=== PATIENT | female | born 1950 | race Caucasian/White ===

== ENCOUNTER 2020-08-02 05:54 | Day surgery (SDC) | payer MEDICARE, OTHER ==
[~2020-08-02] VITALS: Ht 152.4 cm; Wt 68.3 kg
[~2020-08-02 05:54] MED LIST: SODIUM CHLORIDE 0.9% 1,000 ML IV ONE
[2020-08-02] MEDS ORDERED: SODIUM CHLORIDE 0.9% 1,000 ML ONE (05:59)
[2020-08-02 06:44] LABS: COVID AG,FIA SOURCE NASOPHARYNGEAL
[2020-08-02 06:48] LABS: EOSINOPHILS % (AUTO) 1.3 % (1.0-6.0); HEMATOCRIT 39.6 % (36-46); HEMOGLOBIN 13.3 g/dL (12.0-16.0); LYMPHOCYTES # (AUTO) 0.6 K/uL (1.0-4.8); MEAN CORPUSCULAR HEMOGLOBIN 30.2 pg (26.0-34.0); MEAN CORPUSCULAR HGB CONC 33.6 G/dL (31.0-37.0); MEAN CORPUSCULAR VOLUME 90 fL (80-100); MONOCYTES # (AUTO) 0.4 K/uL (0.1-1.0); MONOCYTES % (AUTO) 10.6 % (2.0-9.0); NEUTROPHILS # (AUTO) 2.7 K/uL (1.8-7.7); NEUTROPHILS % (AUTO) 72.1 % (40.0-70.0); PLATELET COUNT (AUTO) 174 K/uL (150-450); RED BLOOD CELL COUNT(AUTO) 4.41 MIL/uL (4.00-5.20); RED CELL DISTRIBUTION WIDTH 13.1 % (11.5-14.5)
[2020-08-02 07:09] LABS: PROTHROMBIN TIME 10.9 SEC (9.4-11.6)
[2020-08-02 07:14] LABS: ANION GAP 8 mmol/L (8-16); CALCIUM, TOTAL 9.1 mg/dL (8.8-10.5); CARBON DIOXIDE 31 mmol/L (22-29); CHLORIDE 103 mmol/L (98-107); CREATININE 0.68 mg/dL (0.60-1.30); GLOMERULAR FILTR. RATE CALC > 60 mL/min (>60); GLUCOSE,RANDOM 104 mg/dL (70-110); POTASSIUM 3.3 mmol/L (3.5-5.1); SODIUM SERUM 142 mmol/L (136-145); UREA NITROGEN, BLOOD 16 mg/dL (7-18)
[2020-08-02] MEDS ORDERED: SODIUM BICARBONATE 50 MEQ/50 ML VIAL ONE (07:33)
[2020-08-02] MEDS ORDERED: IOHEXOL 300 MG/ML 150 ML VIAL ONE (07:33)
[2020-08-02] MEDS ORDERED: VERAPAMIL HCL 2.5 MG/ML 2 ML VIAL ONE (07:33)
[2020-08-02] MEDS ORDERED: HEPARIN SODIUM 1000 UNITS/NS 1,000 ML ONE (07:33)
[2020-08-02] MEDS ORDERED: LIDOCAINE/PF 1% 30 ML VIAL ONE (07:33)
[2020-08-02] MEDS ORDERED: NITROGLYCERIN 50 MG/D5% WATER 250 ML ONE (07:33)
[2020-08-02] MEDS ORDERED: HEPARIN SODIUM,PORCINE 1,000 UNITS/ML 10 ML VIAL ONE (07:34)
[2020-08-02] MEDS ORDERED: FentaNYL CITRATE-PF 100 MCG/2 ML VIAL ONE (07:35)
[2020-08-02] MEDS ORDERED: MIDAZOLAM HCL 2 MG/2 ML VIAL ONE ×2 (07:35→08:48)
[2020-08-02] MEDS ORDERED: OMEP20 PO (07:37)
[2020-08-02] MEDS ORDERED: FERR-89 PO (07:37)
[2020-08-02] MEDS ORDERED: COLC0.6T73 PO (07:37)
[2020-08-02] MEDS ORDERED: ASPI-728 PO (07:37)
[2020-08-02] MEDS ORDERED: BACL5TAB PO (07:37)
[2020-08-02] MEDS ORDERED: PROM-163 PO (07:37)
[2020-08-02] MEDS ORDERED: METO-558 PO (07:37)
[2020-08-02] MEDS ORDERED: APIX5TAB PO ×2 (07:37)
[2020-08-02] MEDS ORDERED: DOCU-275 PO (07:37)
[2020-08-02] MEDS ORDERED: ATOR40TA28 PO (07:37)
[2020-08-02] MEDS ORDERED: FURO20 PO (07:37)
[2020-08-02] MEDS ORDERED: LISI-662 PO (07:37)
[2020-08-02] MEDS ORDERED: POTA20TA83 PO (07:37)
[2020-08-02] MEDS ORDERED: OMEG-136 PO (07:37)
[2020-08-02] MEDS ORDERED: SUMA100T PO (07:37)
[2020-08-02] MEDS ORDERED: DICL2100G TP (07:37)
[2020-08-02] MEDS ORDERED: PROP10TA73 PO (07:37)
[2020-08-02] MEDS ORDERED: FLUT1BLS8 IH (07:37)
[2020-08-02] MEDS ORDERED: ALEN70TA65 PO (07:37)
[2020-08-02 08:21] VITALS: BP 154/84
[2020-08-02] MEDS ORDERED: IOHEXOL 300 MG/ML 150 ML VIAL IARTER ONE (09:00)
[2020-08-02] MEDS ORDERED: LIDOCAINE 1% 30 ML/SOD BICARB 8.4% 4 ML SQ ONE (09:00)
[2020-08-02] MEDS ORDERED: FentaNYL CITRATE-PF 100 MCG/2 ML VIAL IVP ONE ×3 (09:00)
[2020-08-02] MEDS ORDERED: HEPARIN SODIUM 1000 UNITS/NS 1,000 ML IARTER ONE (09:00)
[2020-08-02] MEDS ORDERED: MIDAZOLAM HCL 2 MG/2 ML VIAL IVP ONE ×3 (09:00)
[2020-08-02 09:25] VITALS: BP 125/77
[2020-08-02] MEDS ORDERED: SODIUM CHLORIDE 0.9% 500 ML IV ONE (09:30)
[2020-08-02] MEDS ORDERED: POTASSIUM CHLORIDE 20 MEQ ER TABLET ONE (09:33)
[2020-08-02] MEDS ORDERED: POTASSIUM CHLORIDE 20 MEQ ER TABLET PO ONE (09:45)
== END 2020-08-02 14:00 | disposition home or self-care (01) ==
LOC: CATHLAB 05:54
PROVIDERS: ATTEND Internal Medicine Cardiovascular Disease
DX: R94.39 Abnormal result of other cardiovascular function study (principal); R07.9 Chest pain, unspecified; I25.118 Atherosclerotic heart disease of native coronary artery with other forms of angina pectoris; J44.9 Chronic obstructive pulmonary disease, unspecified; E78.5 Hyperlipidemia, unspecified; I25.2 Old myocardial infarction; I48.0 Paroxysmal atrial fibrillation; E78.2 Mixed hyperlipidemia; Z98.51 Tubal ligation status; Z90.710 Acquired absence of both cervix and uterus; Z98.890 Other specified postprocedural states; Z79.82 Long term (current) use of aspirin; Z79.899 Other long term (current) drug therapy; Z86.718 Personal history of other venous thrombosis and embolism
CPT/HCPCS: 36415; 80048; 85025; 85610; 85730; 87426; 93005; 93460; 99152; 99153; C1760; C9803; J1644 ×2; J2250; J3010; J3490 ×4; J7030; Q9967